=== PATIENT | male | born 1945 ===

== ENCOUNTER 2016-09-20 08:25 | Day surgery (SDC) | payer MEDICARE ==
[2016-09-20] MEDS ORDERED: Nitroglycerin 50mg in D5W 50 MG/250 ML BOTTLE IV ONE (09:46)
[2016-09-20] MEDS ORDERED: Midazolam 2 MG/2 ML VIAL ONE (10:01)
[2016-09-20] MEDS ORDERED: Sodium Chloride 0.9% 500 ML IV SCH (11:08)
--- NOTE | 2016-09-20 11:08 | CP.SDSHP ---
Same Day Surgery H & P - History Proposed Procedure: cardiac cath Pre-Op Diagnosis: NSTEMI - Previous Medical/Surgical History Cardiac: Hypertension, ASHD/CAD Endocrine/Metabolic: Obesity Pain: 4.Moderate Pain - Allergies Allergies: Allergies No Known Allergies Allergy (Verified 09/18/16 17:05) - Physical Exam Mental Status: Alert & Oriented x3 Neuro: WNL Heart: WNL Lungs: WNL GI: WNL - Impression Impression: NSTEMI Pt. Evaluated Today:Candidate for Anesthesia & Procedure: Yes - Date & Time Date: 09/20/16 Time: 10:10 Short Stay Discharge - Short Stay Discharge Admitting Diagnosis/Reason for Visit: NSTEMI Disposition: HOME/ ROUTINE
--- NOTE | 2016-09-20 11:49 | CARDCATH ---
PROCEDURE DATE: 09/20/2016 PERFORMING PHYSICIAN: Shameka Montes MD. PROCEDURE PERFORMED: Left heart catheterization, coronary angiography, left ventriculography. INDICATIONS: Non-ST segment elevation myocardial infarction. COMPLICATIONS: None. HISTORY: The patient is a 71-year-old male with past medical history of hypertension, hypercholesterolemia who presents with a non-ST segment elevation myocardial infarction. For the past week, the patient has had intermittent substernal chest pressure. Symptoms were associated with dyspnea. He ruled in for myocardial infarction and is transferred for cardiac catheterization. DESCRIPTION OF PROCEDURE: After obtaining informed consent, the patient was prepped and draped in the usual sterile fashion. The right wrist was anesthetized with 2% lidocaine solution. A 6-Mexican sheath was inserted into the right radial artery via modified Seldinger technique. Diagnostic Laly left and right coronary catheters were used to perform coronary angiography and left ventriculography. Intra-arterial heparin, nitroglycerin, verapamil and lidocaine were given prior to catheterization. All catheters were then removed and a TR band was used to provide hemostasis. FINDINGS: HEMODYNAMICS: There is no gradient across the aortic valve. Left ventricular end diastolic pressure is 25 mmHg. CORONARIES: RIGHT CORONARY ARTERY: Arises from the right sinus of Valsalva. Eccentric calcification is noted throughout the vessel. There is a ruptured plaque with a 95% stenosis of the proximal vessel. There is a 90% stenosis of the distal vessel. There is evidence of ruptured plaque seen within the right posterolateral ventricular branch. The ostium of the right posterior descending artery has a 90% stenosis. LEFT MAIN: Arises from left sinus of Valsalva. The vessel is normal. LEFT ANTERIOR DESCENDING ARTERY: Arises from the left main and courses along the anterior interventricular groove. Eccentric calcification is noted of the proximal and mid vessel. In an area of the mid left anterior descending artery at a bend, there is 90% stenoses. The diagonal branch has a 70% stenosis proximally. The left circumflex artery arises from the left main and courses along the left atrioventricular groove. There is a 40% stenosis of the proximal vessel. The first obtuse marginal artery has a 75% stenosis at the ostium. LEFT VENTRICLE: Normal left ventricular systolic function. Ejection fraction is 55%. There is no mitral regurgitation, no aortic stenosis. CONCLUSIONS: 1. Severe multivessel coronary artery disease. 2. Normal left ventricular function. PLAN: The patient will be referred for coronary artery bypass grafting. Shameka Montes MD cc: [id number] TT: 09/20/2016 11:48:42 rn MTDD
[2016-09-26 09:26] VITALS: RESP 23; O2SAT 97
== END 2016-09-20 12:15 | disposition short-term general hospital (02) ==
LOC: C.CATHLAB 08:25
PROVIDERS: ATTEND Internal Medicine Cardiovascular Disease
DX: I21.4 Non-ST elevation (NSTEMI) myocardial infarction (principal); I25.10 Atherosclerotic heart disease of native coronary artery without angina pectoris; I10 Essential (primary) hypertension; E78.00 Pure hypercholesterolemia, unspecified; E66.9 Obesity, unspecified